=== PATIENT | male | born 2000 | race Caucasian/White ===

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

== ENCOUNTER 2021-12-14 18:23 | Emergency (ER) | payer OTHER ==
[~2021-12-14] VITALS: Ht 198.1 cm; Wt 72.6 kg
[~2021-12-14 18:23] MED LIST changes: +DOXY100 PO; +Keflex500 MG PO
[2021-12-14 21:43] LABS: BASOPHILS ABSOLUTE AUTO 0.07 K/mm3 (0.00-0.23); BASOPHILS PERCENT AUTO 1 % (0-2); EOSINOPHILS ABSOLUTE AUTO 0.61 K/mm3 (0.00-0.68); EOSINOPHILS PERCENT AUTO 8 % (0-6); Hematocrit 42.3 % (37.0-53.0); Hemoglobin 13.8 g/dL (13.5-17.5); IMMATURE GRAN ABSOLUTE AUTO 0.01 K/mm3 (0.00-0.10); IMMATURE GRAN PERCENT AUTO 0 % (0-1); LYMPHOCYTES ABSOLUTE AUTO 2.77 K/mm3 (0.84-5.20); LYMPHOCYTES PERCENT AUTO 34 % (21-46); MONOCYTES ABSOLUTE AUTO 0.67 K/mm3 (0.16-1.47); MONOCYTES PERCENT AUTO 8 % (4-13); Mean Corpuscular HGB 29.9 pg (26.0-34.0); Mean Corpuscular HGB Conc 32.6 g/dL (31.5-36.5); Mean Corpuscular Volume 92 fL (80-100); Mean Platelet Volume 8.8 fL (9.1-12.4); NEUTROPHILS ABSOLUTE AUTO 3.98 K/mm3 (1.96-9.15); NEUTROPHILS PERCENT AUTO 49 % (41-73); Platelet Count 395 K/mm3 (150-400); RDW Coefficient Variation 12.8 % (11.7-14.2); RDW Standard Deviation 42.8 fL (35.1-46.3); Red Blood Cell Count 4.62 M/mm3 (4.30-5.90); White Blood Cell Count 8.11 K/mm3 (4.00-11.30)
[2021-12-14 22:01] LABS: Albumin, Blood 3.7 g/dL (3.4-5.0); Albumin/Globulin Ratio 1.1 (0.8-1.8); Bilirubin, Total 0.3 mg/dL (0.1-1.0); Bun/Creatinine Ratio 15.5 (12.0-20.0); Calcium, Blood 8.8 mg/dL (8.5-10.1); Creatinine, Blood 0.77 mg/dL (0.60-1.20); Globulin, Blood 3.3 g/dL (2.2-4.0); Potassium, Blood 4.3 mmol/L (3.5-5.5)
[2021-12-14] MEDS ORDERED: CEPH500 PO (22:05)
== END 2021-12-14 22:17 | disposition home or self-care (01) ==
LOC: ER 18:23
PROVIDERS: Student in an Organized Health Care Education/Training Program
DX: M86.9 Osteomyelitis, unspecified (principal); F17.200 Nicotine dependence, unspecified, uncomplicated
CPT/HCPCS: 36415; 73130; 80053; 85025; A9270

== ENCOUNTER 2022-08-12 00:12 | Emergency (ER) | payer OTHER ==
[~2022-08-12] VITALS: Ht 198.1 cm; Wt 90.7 kg
[~2022-08-12 00:12] MED LIST changes: +CEPH500 PO
== END 2022-08-12 01:22 | disposition home or self-care (01) ==
LOC: ER 00:12
DX: Z00.8 Encounter for other general examination (principal); F41.9 Anxiety disorder, unspecified; F17.210 Nicotine dependence, cigarettes, uncomplicated; Z79.899 Other long term (current) drug therapy
CPT/HCPCS: 99282